=== PATIENT | male | born 1945 | race Caucasian/White ===

== ENCOUNTER → 2024-01-14 | Outpatient (CLI) | payer MEDICARE | END | disposition home or self-care (01) | LOC: LABWHC1 09:34 | PROVIDERS: ATTEND Urology | DX: R97.20 Elevated prostate specific antigen [PSA] (principal) | CPT/HCPCS: 36415; 84153 ==

== ENCOUNTER → 2024-01-26 | Outpatient (CLI) | payer MEDICARE ==
--- NOTE | 2024-01-26 17:41 | MR ---
EXAMINATION TYPE: MR Prostate wo/w con DATE OF EXAM: 01/26/2024 7:54 AM COMPARISON: None. CLINICAL INDICATION:Male, 78 years old with history of R97.20 elevated psa; elevated PSA, history of bx in 198901/30/21 6.6 11/15/21 5.7 11/18/22 7.1 11/26/23 8.6 TECHNIQUE: Multi-planar, multi-sequence imaging of the pelvis is performed prior to and following the uncomplicated administration of bolus intravenous gadolinium. CONTRAST: 7ml Gadavist Interpretive Criteria: PI-RADS v2.1 SERUM PSA: 01/30/21 6.6 11/15/21 5.7 11/18/22 7.1 11/26/23 8.6 SURGICAL PATHOLOGY: Prior biopsy performed no data available FINDINGS: Prostatic dimensions: 6.8 x 6.7 x 4.6 cm. Ellipsoid Volume:109.73 (PSA density=0.08 ng/mL/mL) CENTRAL GLAND (Central and Transition Zones/CZ+TZ): Focus of high DWI and low ADC signal in the right mid gland measuring 7 mm corresponding with PI-RADS 4) PERIPHERAL ZONE (PZ): Bilateral linear, indistinct wedgelike areas of low ADC, and low T2 signal, No evidence of masslike a bnormality, or localized perfusional hypervascularity, to further suggest a focus of clinically signi ficant prostate cancer. (PI-RADS 2) SEMINAL VESICLES (SV): Symmetric and unremarkable. PERIPROSTATIC TISSUES: Unremarkable. LYMPH NODES: No enlarged pelvic lymph node. REMAINING PELVIS: Bladder wall is within normal limits given distention. No abnormal free or organized intrapelvic fluid collection. No pathologic bowel dilation or mural thickening. Colonic diverticula are present. No hernia visualized OSSEOUS STRUCTURES: No suspicious osseous abnormality. IMPRESSION: 1. PI-RADS 4 focus of high DWI/low ADC signal unclear if this is a BPH nodule as no definitive T2 alesha ghted imaging finding definitively visualized. Area measures 7 mm in the mid gland. 2. Substantial BPH, estimated gland volume 109.73 mL. 3. No suspicious osseous lesion. No lymphadenopathy. No evidence of prostate adenocarcinoma involving the periprostatic tissues.
== END | disposition home or self-care (01) ==
LOC: RADMRIMAIN 06:53
PROVIDERS: ATTEND Urology
DX: N40.0 Benign prostatic hyperplasia without lower urinary tract symptoms (principal); R97.20 Elevated prostate specific antigen [PSA]
CPT/HCPCS: 72197; A9585

== ENCOUNTER → 2024-04-16 | Outpatient (CLI) | payer MEDICARE ==
[2024-04-16 15:29] LABS: Basophils # (A) 0.05 X 10*3/uL (0.00-0.10); Basophils % (A) 0.6 %; Eosinophils # (A) 0.17 X 10*3/uL (0.04-0.35); Eosinophils % (A) 1.9 %; HCT 39.6 % (39.6-50.0); HGB 12.7 g/dL (13.0-17.0); Lymphocytes # (A) 1.62 X 10*3/uL (0.90-5.00); Lymphocytes % (A) 18.5 %; MCHC 32.1 g/dL (32.0-37.0); MCV 90.4 FL (80.0-97.0); Monocytes # (A) 0.77 X 10*3/uL (0.20-1.00); Monocytes % (A) 8.8 %; NRBC Per 100 WBC 0 X 10*3/uL (0.00-0.01); Neutrophils # (A) 6.11 X 10*3/uL (1.80-7.70); Neutrophils % (A) 69.6 %; Platelet Count 259 X 10*3/uL (140-440); RBC 4.38 X 10*6/uL (4.40-5.60); RDW 13.4 % (11.5-14.5); WBC 8.77 X 10*3/uL (4.50-10.00)
[2024-04-16 16:53] LABS: BUN/Creat Ratio 19.93 Ratio (12.00-20.00); Blood Urea Nitrogen 29.9 mg/dL (9.0-27.0); Calcium 9.4 mg/dL (8.7-10.3); Carbon Dioxide 24.5 mmol/L (21.6-31.8); Chloride 103 mmol/L (96-109); Glucose 82 mg/dL (70-110); Sodium 139 mmol/L (135-145)
== END | disposition home or self-care (01) ==
LOC: LABPAT 10:13
PROVIDERS: ATTEND Urology
CPT/HCPCS: 80048; 85025

== ENCOUNTER 2024-04-22 11:23 | Day surgery (SDC) | payer MEDICARE ==
--- NOTE | 2024-04-21 07:16 | P.GSHP ---
History of Present Illness H&P Date: 04/21/24 Chief Complaint: Elevated PSA level The patient is a 78-year-old white male with no family history of prostate cancer. Recent PSA levels have been 8.6 and 6.93. Digital rectal examination reveals the prostate to be enlarged but smooth. Prostate MRI shows a prostate volume of 110 cc, with a questionable PI-RADS 4 lesion located within the right mid gland. He now comes for MRI fusion biopsies. - Genitourinary (Male) Genitourinary: Reports urinary frequency Past Medical History Past Medical History: Hyperlipidemia, Prostate Disorder, Thyroid Disorder Additional Past Medical History / Comment(s): BPH, History of Any Multi-Drug Resistant Organisms: None Reported Additional Past Surgical History / Comment(s): trigger finger surgery. Colonoscopy. Past Anesthesia/Blood Transfusion Reactions: No Reported Reaction Smoking Status: Never smoker - Past Family History Father Family Medical History: No Reported History Medications and Allergies Home Medications Medication Instructions Recorded Confirmed Type Ciprofloxacin HCl 500 mg PO DIRECTED 04/16/24 04/16/24 History Fenofibrate 160 mg PO DAILY 04/16/24 04/16/24 History Levothyroxine Sodium [Synthroid] 50 mcg PO DAILY 04/16/24 04/16/24 History Allergies Allergy/AdvReac Type Severity Reaction Status Date / Time No Known Allergies Allergy Verified 04/16/24 12:44 Surgical - Exam - General well developed, well nourished, no distress - Respiratory normal respiratory effort - Abdomen Abdomen: soft, non tender, no guarding, no rigid, no rebound Hernia: inguinal - Genitourinary normal penis with no external lesions, testicles non-tender - Rectum Rectum: normal sphincter tone, no masses, other (Prostate enlarged but smooth) - Psychiatric oriented to time, oriented to person, oriented to place, speech is normal, memory intact Assessment and Plan (1) Elevated prostate specific antigen [PSA] Status: Acute Code(s): R97.20 - ELEVATED PROSTATE SPECIFIC ANTIGEN [PSA] SNOMED Code(s): 036198356 Plan: The patient will undergo MRI-Ultrasound fusion transrectal biopsies of the prostate. The procedure has been reviewed in detail with the patient. He has been made aware of potential risks, which include anesthesia, bleeding, and infection. He is also aware that a negative biopsy does not completely rule out prostate cancer.
[2024-04-22] MEDS ORDERED: LIDOCAINE 1% (10MG/ML) FOR IV START INTRADERMA PRN (13:34)
[2024-04-22 13:41] VITALS: TEMP 97
[2024-04-22] MEDS: IV FLUID CONTINUATION 1,000 ML IV ONE (13:45)
[2024-04-22] MEDS: LACTATED RINGERS 1,000 ML IV SCH (13:52)
[2024-04-22] MEDS: GENTAMICIN 40 MG/ML 2 ML VIAL IM PRN (13:52)
[2024-04-22] MEDS ORDERED: MIDAZOLAM 2 MG/2 ML VIAL ONE (14:32)
[2024-04-22] MEDS ORDERED: PROPOFOL 10 MG/ML 20 ML VIAL IV ONE (14:32)
[2024-04-22] MEDS ORDERED: fentaNYL (PF) 50 MCG/ML 2 ML AMP ONE (14:32)
--- NOTE | 2024-04-22 14:55 | P.OP ---
Date of Procedure: 04/22/24 Preoperative Diagnosis: Elevated PSA level Postoperative Diagnosis: Same Procedure(s) Performed: MRI fusion biopsies of the prostate Anesthesia: MAC Surgeon: Tj Haney Estimated Blood Loss (ml): 5 IV fluids (ml): 300 Pathology: other (Prostate biopsies) Condition: stable Disposition: PACU Indications for Procedure: The patient is a 78-year-old white male with no family history of prostate cancer. Recent PSA levels have been 8.6 and 6.93. Digital rectal examination reveals the prostate to be enlarged but smooth. Prostate MRI shows a prostate volume of 110 cc, with a questionable PI-RADS 4 lesion located within the right mid gland. He now comes for MRI fusion biopsies. Operative Findings: Adequate specimens obtained. Description of Procedure: The patient was taken to the operating room and placed in the left lateral decubitus position. MAT revealed the prostate to be enlarged but smooth. The Centrix transrectal ultrasound probe was placed intrarectally. It was then placed within the stand of the [employer] MRI/TRUS Fusion for Prostate Biopsy system. The prostate was imaged in both the axial and sagittal planes, revealing a prostate volume of 101 mL. Using the Biopty gun, 3 biopsies were obtained from each the right base transitional zone target lesion. The remaining 12 biopsies of the peripheral zone were obtained utilizing a standard template. Once the procedure was completed, the ultrasound probe was removed. The patient tolerated the procedure well was taken to the recovery room stable condition.
[2024-04-22 15:14] VITALS: BP 125/76; PULSE 75; RESP 16
== END 2024-04-22 15:30 | disposition home or self-care (01) ==
LOC: OR 11:23
PROVIDERS: ATTEND Urology
CPT/HCPCS: 88305